=== PATIENT | female | born 1965 | race Two or more races ===

== ENCOUNTER 2019-08-11 15:12 | Inpatient (IN) | payer MEDICAID ==
[~2019-08-11] VITALS: Ht 160 cm; Wt 51.5 kg
[2019-08-11 15:36] LABS: GLUCOSE,POINT OF CARE 298 MG/DL (70-110)
[2019-08-11 15:58] LABS: BASOPHILS % (AUTO) 0.6 % (0.0-2.0); EOSINOPHILS % (AUTO) 0.1 % (1.0-6.0); HEMATOCRIT 26.9 % (36-46); HEMOGLOBIN 8.7 g/dL (12.0-16.0); LYMPHOCYTES # (AUTO) 1.2 K/uL (1.0-4.8); LYMPHOCYTES % (AUTO) 5.2 % (22.0-44.0); MEAN CORPUSCULAR HGB CONC 32.3 G/dL (31.0-37.0); MEAN CORPUSCULAR VOLUME 81 fL (80-100); MONOCYTES # (AUTO) 1.5 K/uL (0.1-1.0); MONOCYTES % (AUTO) 6.2 % (2.0-9.0); NEUTROPHILS # (AUTO) 20.6 K/uL (1.8-7.7); PLATELET COUNT (AUTO) 585 K/uL (150-450); RED BLOOD CELL COUNT(AUTO) 3.34 MIL/uL (4.00-5.20); RED CELL DISTRIBUTION WIDTH 14.6 % (11.5-14.5)
[2019-08-11 16:03] LABS: NEUTROPHILS % (AUTO) 87.9 % (40.0-70.0)
[2019-08-11] MEDS ORDERED: SODIUM CHLORIDE 0.9% 1,000 ML IV ONE ×2 (16:15→16:45)
[2019-08-11 16:17] LABS: PROTHROMBIN TIME 10.4 SEC (9.4-11.6)
[2019-08-11 16:18] LABS: CALCIUM, TOTAL 8.7 mg/dL (8.8-10.5); CREATININE 1.05 mg/dL (0.60-1.30); POTASSIUM 4.6 mmol/L (3.5-5.1)
[2019-08-11 16:25] LABS: ALBUMIN 1.9 g/dL (3.4-5.0); BILIRUBIN,TOTAL 0.5 mg/dL (0.1-1.0); TOTAL PROTEIN, SERUM 7.3 g/dL (6.4-8.2)
[2019-08-11] MEDS ORDERED: TAZOBACTAM IV ONE (17:00)
[2019-08-11] MEDS ORDERED: WATER IV ONE (17:00)
[2019-08-11] MEDS ORDERED: DEXTROSE 5% IV ONE (17:00)
[2019-08-11] MEDS ORDERED: PIPERACILLIN SODIUM IV ONE (17:00)
[2019-08-11 17:06] LABS: ABG A-A DIFF O2 23.3 mmHg (10-20.0); ABG BASE EXCESS 2.3 mmol/L (-2.0-3.0); ABG HCO3 26.4 mmol/L (22.0-26.0); ABG METHEMOGLOBIN 0.3 % (0.0-1.5); ABG OXYGEN CONTENT 10.6 mL/dL (15.0-23.0); ABG OXYGEN SATURATION 95.8 % (95.0-98.0); ABG OXYHEMOGLOBIN 94.6 % (94.0-100.0); ABG PCO2 38 mmHg (35-45); ABG PH 7.459 (7.35-7.450); PO2, ARTERIAL BG 81.4 mmHg (84.0-92.0); SOURCE, BLOOD GAS ARTERIAL; TEMPERATURE, FAHRENHEIT, BG 98.1 FAHREN (96.0-98.6)
[2019-08-11 17:07] LABS: ABG TOTAL HEMOGLOBIN 7.9 G/dL (12.0-18.0); O2 DEVICE,BLOOD GAS ROOM AIR (ROOM AIR); SITE, BLOOD GAS LFT RADIAL
[2019-08-11] MEDS ORDERED: ACETAMINOPHEN 325 MG TABLET PO PRN (17:45)
[2019-08-11] MEDS ORDERED: ONDANSETRON HCL 4 MG/2 ML VIAL IVP PRN ×2 (17:45→21:45)
[2019-08-11] MEDS ORDERED: 0.9% SODIUM CHLORIDE 10 ML SYRINGE IVP PRN ×2 (17:45→21:45)
[2019-08-11] MEDS ORDERED: VANCOMYCIN HCL 1.25 GM in DEXTROSE 5%-WATER 250 ML IV ONE (18:00)
[2019-08-11] MEDS ORDERED: DEXTROSE 50%-WATER 25 GM/50 ML SYRINGE IVP PRN (21:45)
[2019-08-11] MEDS ORDERED: OxyCODONE HCL/ACETAMINOPHEN 5-325 MG TABLET PO PRN ×2 (21:45)
[2019-08-11 22:15] VITALS: BP 145/79
[2019-08-11] MEDS: DOCUSATE SODIUM 100 MG CAPSULE PO SCH (22:24)
[2019-08-11] MEDS: INSULIN LISPRO 100 UNITS/ML SQ PRN (22:24)
[2019-08-11] MEDS: HEPARIN SODIUM,PORCINE 5,000 UNITS/ML VIAL SQ SCH (22:25)
[2019-08-11] MEDS ORDERED: DEXTROSE 5% IV SCH (23:00)
[2019-08-11] MEDS ORDERED: WATER IV SCH (23:00)
[2019-08-11] MEDS ORDERED: PIPERACILLIN SODIUM IV SCH (23:00)
[2019-08-11] MEDS ORDERED: TAZOBACTAM IV SCH (23:00)
[2019-08-12] VITALS (7 sets, daily range): BP systolic 104–143; BP diastolic 52–84
[2019-08-12] MEDS ORDERED: SODIUM CHLORIDE 0.9% 250 ML IV ONE (00:08)
[2019-08-12] MEDS: PIPERACILLIN/TAZO 3.375 GM/D5W 50 ML IV SCH ×5 (00:44→23:02)
[2019-08-12] MEDS ORDERED: INFLUENZA VIRUS VACCINE QVS 2019-20 (3YR+)/PF 60 MCG/0.5 ML SYRINGE IM ONE (03:15)
[2019-08-12] MEDS ORDERED: VANCOMYCIN HCL 750 MG in DEXTROSE 5%-WATER 250 ML IV SCH (06:00)
[2019-08-12] MEDS: INSULIN LISPRO 100 UNITS/ML SQ PRN ×4 (06:02→21:06)
[2019-08-12 06:11] LABS: BASOPHILS % (AUTO) 0.5 % (0.0-2.0); EOSINOPHILS % (AUTO) 0.3 % (1.0-6.0); HEMATOCRIT 22.4 % (36-46); HEMOGLOBIN 7.3 g/dL (12.0-16.0); LYMPHOCYTES % (AUTO) 5.3 % (22.0-44.0); MEAN CORPUSCULAR HEMOGLOBIN 26.1 pg (26.0-34.0); MEAN CORPUSCULAR HGB CONC 32.6 G/dL (31.0-37.0); MEAN CORPUSCULAR VOLUME 80 fL (80-100); MONOCYTES # (AUTO) 1.5 K/uL (0.1-1.0); MONOCYTES % (AUTO) 7.4 % (2.0-9.0); PLATELET COUNT (AUTO) 470 K/uL (150-450); RED CELL DISTRIBUTION WIDTH 14.7 % (11.5-14.5)
[2019-08-12 06:17] LABS: NEUTROPHILS % (AUTO) 86.5 % (40.0-70.0)
[2019-08-12 06:20] LABS: HEMOGLOBIN A1C 10.7 % (4.5-6.2)
[2019-08-12 06:29] LABS: ANION GAP 6 mmol/L (8-16); CARBON DIOXIDE 27 mmol/L (22-29); CHLORIDE 103 mmol/L (98-107); CHOL/HDL RATIO 2.6 (3.9-5.7); CHOLESTEROL 130 mg/dL (131-200); CREATININE 0.82 mg/dL (0.60-1.30); GLOMERULAR FILTR. RATE CALC > 60 mL/min (>60); GLUCOSE,RANDOM 181 mg/dL (70-110); HDL CHOLESTEROL 50 mg/dL (40-60); LDL CHOL (CALC.) 65 mg/dL (0-130); POTASSIUM 4.5 mmol/L (3.5-5.1); SODIUM SERUM 136 mmol/L (136-145); TRIGLYCERIDES 76 mg/dL (15-150); UREA NITROGEN, BLOOD 20 mg/dL (7-18)
[2019-08-12] MEDS: VANCOMYCIN HCL 750 MG in DEXTROSE 5%-WATER 250 ML IV SCH ×2 (06:42→19:14)
[2019-08-12 07:26] LABS: GLUCOSE,POINT OF CARE 322 MG/DL (70-110)
[2019-08-12] MEDS: DOCUSATE SODIUM 100 MG CAPSULE PO SCH ×2 (07:59→21:03)
[2019-08-12] MEDS: HEPARIN SODIUM,PORCINE 5,000 UNITS/ML VIAL SQ SCH ×2 (07:59→21:04)
[2019-08-12] MEDS: FAMOTIDINE 10 MG/ML 2 ML VIAL IVP SCH (08:00)
[2019-08-12 12:11] LABS: GLUCOMETER DEV NAME(LOC) 6N.2; GLUCOSE,POINT OF CARE 180 MG/DL (70-110)
[2019-08-12 19:26] LABS: GLUCOMETER DEV NAME(LOC) 4E.2; GLUCOSE,POINT OF CARE 210 MG/DL (70-110)
[2019-08-12 19:26] LABS: GLUCOMETER DEV NAME(LOC) 4E.2; GLUCOSE,POINT OF CARE 279 MG/DL (70-110)
[2019-08-12 19:26] LABS: GLUCOMETER DEV NAME(LOC) 4E.2; GLUCOSE,POINT OF CARE 316 MG/DL (70-110)
[2019-08-12] MEDS: ACETAMINOPHEN 325 MG TABLET PO PRN (21:03)
[2019-08-13 04:39] VITALS: BP 141/80
[2019-08-13] MEDS: PIPERACILLIN/TAZO 3.375 GM/D5W 50 ML IV SCH ×3 (05:31→16:19)
[2019-08-13] MEDS: VANCOMYCIN HCL 750 MG in DEXTROSE 5%-WATER 250 ML IV SCH ×2 (06:18→18:52)
[2019-08-13] MEDS: INSULIN LISPRO 100 UNITS/ML SQ PRN ×4 (06:24→21:58)
[2019-08-13 06:39] LABS: BASOPHILS % (AUTO) 0.4 % (0.0-2.0); EOSINOPHILS % (AUTO) 0.9 % (1.0-6.0); HEMATOCRIT 24.9 % (36-46); HEMOGLOBIN 8.1 g/dL (12.0-16.0); LYMPHOCYTES # (AUTO) 0.9 K/uL (1.0-4.8); LYMPHOCYTES % (AUTO) 4.3 % (22.0-44.0); MEAN CORPUSCULAR HGB CONC 32.3 G/dL (31.0-37.0); MEAN CORPUSCULAR VOLUME 81 fL (80-100); MONOCYTES # (AUTO) 1.6 K/uL (0.1-1.0); MONOCYTES % (AUTO) 7.2 % (2.0-9.0); PLATELET COUNT (AUTO) 496 K/uL (150-450); RED CELL DISTRIBUTION WIDTH 14.7 % (11.5-14.5)
[2019-08-13 06:46] LABS: GLUCOMETER DEV NAME(LOC) 6N.2; GLUCOSE,POINT OF CARE 252 MG/DL (70-110)
[2019-08-13 06:52] LABS: NEUTROPHILS % (AUTO) 87.2 % (40.0-70.0)
[2019-08-13 06:57] LABS: CALCIUM, TOTAL 8.1 mg/dL (8.8-10.5); CREATININE 1.09 mg/dL (0.60-1.30); POTASSIUM 4.5 mmol/L (3.5-5.1)
[2019-08-13 08:19] VITALS: BP 136/73
[2019-08-13] MEDS: DOCUSATE SODIUM 100 MG CAPSULE PO SCH ×2 (08:21→21:00)
[2019-08-13] MEDS: HEPARIN SODIUM,PORCINE 5,000 UNITS/ML VIAL SQ SCH ×2 (08:23→21:00)
[2019-08-13] MEDS: FAMOTIDINE 10 MG/ML 2 ML VIAL IVP SCH (08:24)
[2019-08-13 11:32] LABS: GLUCOMETER DEV NAME(LOC) 4E.2; GLUCOSE,POINT OF CARE 321 MG/DL (70-110)
[2019-08-13 15:20] VITALS: BP 121/68
[2019-08-13] MEDS: MetFORMIN HCL 850 MG TABLET PO SCH (16:55)
[2019-08-13 19:46] LABS: GLUCOMETER DEV NAME(LOC) 6N.2; GLUCOSE,POINT OF CARE 355 MG/DL (70-110)
[2019-08-13 19:46] LABS: GLUCOMETER DEV NAME(LOC) 6N.2; GLUCOSE,POINT OF CARE 309 MG/DL (70-110)
[2019-08-13 19:55] VITALS: BP 113/61
[2019-08-13 23:41] LABS: GLUCOMETER DEV NAME(LOC) 6N.2; GLUCOSE,POINT OF CARE 352 MG/DL (70-110)
[2019-08-14] VITALS: BP 131/75
[2019-08-14] MEDS: PIPERACILLIN/TAZO 3.375 GM/D5W 50 ML IV SCH ×5 (00:45→23:26)
[2019-08-14 04:50] VITALS: BP 127/77
[2019-08-14] MEDS ORDERED: LIDOCAINE/PF 1% 30 ML VIAL ONE (06:49)
[2019-08-14] MEDS ORDERED: BUPIVACAINE HCL/PF 0.5% 30 ML VIAL ONE (06:50)
[2019-08-14] MEDS ORDERED: SODIUM CL IRRIG SOLN BAG 3,000 ML IRRIG ONE (07:06)
[2019-08-14] MEDS ORDERED: BACITRACIN 50,000 UNITS/VIAL ONE (07:06)
[2019-08-14] MEDS ORDERED: SODIUM CHLORIDE 0.9% 1,000 ML IV ONE (07:08)
[2019-08-14 07:49] LABS: BASOPHILS % (AUTO) 0.5 % (0.0-2.0); EOSINOPHILS % (AUTO) 1.1 % (1.0-6.0); HEMOGLOBIN 7.8 g/dL (12.0-16.0); LYMPHOCYTES # (AUTO) 1.2 K/uL (1.0-4.8); LYMPHOCYTES % (AUTO) 6.2 % (22.0-44.0); MEAN CORPUSCULAR HEMOGLOBIN 25.9 pg (26.0-34.0); MEAN CORPUSCULAR HGB CONC 32.5 G/dL (31.0-37.0); MEAN CORPUSCULAR VOLUME 80 fL (80-100); MONOCYTES # (AUTO) 1.5 K/uL (0.1-1.0); MONOCYTES % (AUTO) 7.9 % (2.0-9.0); NEUTROPHILS % (AUTO) 84.3 % (40.0-70.0); PLATELET COUNT (AUTO) 477 K/uL (150-450); RED BLOOD CELL COUNT(AUTO) 3.01 MIL/uL (4.00-5.20); RED CELL DISTRIBUTION WIDTH 14.6 % (11.5-14.5)
[2019-08-14] MEDS ORDERED: HYDROmorphone 2 MG/ML SYRINGE IVP PRN (08:00)
[2019-08-14] MEDS: OXYGEN THERAPY IH SCH (08:00)
[2019-08-14] MEDS ORDERED: FentaNYL CITRATE-PF 100 MCG/2 ML VIAL IVP PRN (08:00)
[2019-08-14] MEDS ORDERED: VANCOMYCIN HCL 1 GM/VIAL ONE (08:00)
[2019-08-14] MEDS: MetFORMIN HCL 850 MG TABLET PO SCH ×2 (08:00→17:06)
[2019-08-14 08:03] LABS: CREATININE 1.01 mg/dL (0.60-1.30); VANCOMYCIN,RANDOM 14.9 mcg/mL (25.0-50.0)
[2019-08-14] MEDS: FAMOTIDINE 10 MG/ML 2 ML VIAL IVP SCH (09:00)
[2019-08-14] MEDS: DOCUSATE SODIUM 100 MG CAPSULE PO SCH ×2 (09:00→21:41)
[2019-08-14] MEDS: HEPARIN SODIUM,PORCINE 5,000 UNITS/ML VIAL SQ SCH ×2 (09:00→21:40)
[2019-08-14 09:45] VITALS: BP 125/75
[2019-08-14 11:36] VITALS: BP 130/74
[2019-08-14] MEDS: INSULIN LISPRO 100 UNITS/ML SQ PRN ×3 (11:36→21:42)
[2019-08-14] MEDS ORDERED: SODIUM CHLORIDE 0.9% 500 ML IV ONE (11:57)
[2019-08-14] MEDS: ACETAMINOPHEN 325 MG TABLET PO PRN (11:59)
[2019-08-14] MEDS ORDERED: LIDOCAINE/PF 2% 5 ML VIAL INJ ONE (12:00)
[2019-08-14] MEDS ORDERED: FentaNYL CITRATE-PF 250 MCG/5 ML VIAL IVP ONE (12:00)
[2019-08-14] MEDS ORDERED: MIDAZOLAM HCL 2 MG/2 ML VIAL IVP ONE (12:00)
[2019-08-14 12:01] LABS: GLUCOMETER DEV NAME(LOC) 6N.2; GLUCOSE,POINT OF CARE 218 MG/DL (70-110)
[2019-08-14] MEDS: VANCOMYCIN HCL 750 MG in DEXTROSE 5%-WATER 250 ML IV SCH ×2 (12:12→18:07)
[2019-08-14 15:10] VITALS: BP 119/65
[2019-08-14 18:01] LABS: GLUCOMETER DEV NAME(LOC) 4E.2; GLUCOSE,POINT OF CARE 208 MG/DL (70-110)
[2019-08-14 19:30] VITALS: BP 126/68
[2019-08-15] VITALS (7 sets, daily range): BP systolic 116–138; BP diastolic 66–87
[2019-08-15] MEDS: PIPERACILLIN/TAZO 3.375 GM/D5W 50 ML IV SCH ×3 (04:37→17:57)
[2019-08-15 05:39] LABS: BASOPHILS % (AUTO) 0.7 % (0.0-2.0); EOSINOPHILS % (AUTO) 2.6 % (1.0-6.0); HEMATOCRIT 21.4 % (36-46); LYMPHOCYTES # (AUTO) 1.6 K/uL (1.0-4.8); LYMPHOCYTES % (AUTO) 11.2 % (22.0-44.0); MEAN CORPUSCULAR HEMOGLOBIN 26.1 pg (26.0-34.0); MEAN CORPUSCULAR HGB CONC 32.8 G/dL (31.0-37.0); MEAN CORPUSCULAR VOLUME 80 fL (80-100); MONOCYTES # (AUTO) 1.1 K/uL (0.1-1.0); MONOCYTES % (AUTO) 7.7 % (2.0-9.0); NEUTROPHILS # (AUTO) 11.4 K/uL (1.8-7.7); NEUTROPHILS % (AUTO) 77.8 % (40.0-70.0); PLATELET COUNT (AUTO) 452 K/uL (150-450); RED BLOOD CELL COUNT(AUTO) 2.69 MIL/uL (4.00-5.20); RED CELL DISTRIBUTION WIDTH 14.7 % (11.5-14.5)
[2019-08-15 05:55] LABS: CALCIUM, TOTAL 7.9 mg/dL (8.8-10.5); CREATININE 1.03 mg/dL (0.60-1.30); POTASSIUM 4.4 mmol/L (3.5-5.1)
[2019-08-15] MEDS: INSULIN LISPRO 100 UNITS/ML SQ PRN ×4 (06:02→20:41)
[2019-08-15 06:37] LABS: GLUCOMETER DEV NAME(LOC) 4E.2; GLUCOSE,POINT OF CARE 187 MG/DL (70-110)
[2019-08-15] MEDS: VANCOMYCIN HCL 750 MG in DEXTROSE 5%-WATER 250 ML IV SCH ×2 (06:49→19:10)
[2019-08-15] MEDS: OXYGEN THERAPY IH SCH ×2 (08:00→20:00)
[2019-08-15] MEDS: FAMOTIDINE 10 MG/ML 2 ML VIAL IVP SCH (08:48)
[2019-08-15] MEDS: MetFORMIN HCL 850 MG TABLET PO SCH (08:48)
[2019-08-15] MEDS: HEPARIN SODIUM,PORCINE 5,000 UNITS/ML VIAL SQ SCH ×2 (08:48→20:07)
[2019-08-15] MEDS: DOCUSATE SODIUM 100 MG CAPSULE PO SCH ×2 (08:48→20:07)
[2019-08-15 11:41] LABS: GLUCOMETER DEV NAME(LOC) 6N.2; GLUCOSE,POINT OF CARE 319 MG/DL (70-110)
[2019-08-15 11:41] LABS: GLUCOMETER DEV NAME(LOC) 6N.2; GLUCOSE,POINT OF CARE 320 MG/DL (70-110)
[2019-08-15 12:22] LABS: GLUCOMETER DEV NAME(LOC) 6N.2; GLUCOSE,POINT OF CARE 242 MG/DL (70-110)
[2019-08-15] MEDS: SOD FERRIC GLUC COMPLX/SUCROSE 125 MG in SODIUM CHLORIDE 0.9% 100 ML IV SCH (14:53)
[2019-08-15 17:26] LABS: GLUCOMETER DEV NAME(LOC) 6N.2; GLUCOSE,POINT OF CARE 219 MG/DL (70-110)
[2019-08-15] MEDS: MetFORMIN HCL 500 MG TABLET PO SCH (18:07)
[2019-08-16] MEDS: PIPERACILLIN/TAZO 3.375 GM/D5W 50 ML IV SCH ×5 (00:05→23:28)
[2019-08-16 04:00] VITALS: BP 136/78
[2019-08-16] MEDS ORDERED: SODIUM CHLORIDE 0.9% 500 ML IV ONE (05:09)
[2019-08-16 05:24] LABS: BASOPHILS % (AUTO) 1.1 % (0.0-2.0); EOSINOPHILS % (AUTO) 3.9 % (1.0-6.0); HEMATOCRIT 22.4 % (36-46); HEMOGLOBIN 7.8 g/dL (12.0-16.0); LYMPHOCYTES # (AUTO) 1.3 K/uL (1.0-4.8); LYMPHOCYTES % (AUTO) 12.4 % (22.0-44.0); MEAN CORPUSCULAR HEMOGLOBIN 27.8 pg (26.0-34.0); MEAN CORPUSCULAR HGB CONC 34.9 G/dL (31.0-37.0); MEAN CORPUSCULAR VOLUME 80 fL (80-100); MONOCYTES % (AUTO) 9.1 % (2.0-9.0); NEUTROPHILS % (AUTO) 73.5 % (40.0-70.0); PLATELET COUNT (AUTO) 445 K/uL (150-450); RED BLOOD CELL COUNT(AUTO) 2.82 MIL/uL (4.00-5.20); RED CELL DISTRIBUTION WIDTH 14.8 % (11.5-14.5)
[2019-08-16 05:26] LABS: GLUCOMETER DEV NAME(LOC) 6N.2; GLUCOSE,POINT OF CARE 177 MG/DL (70-110)
[2019-08-16 05:34] LABS: CALCIUM, TOTAL 8.1 mg/dL (8.8-10.5); CREATININE 1.05 mg/dL (0.60-1.30); POTASSIUM 4.6 mmol/L (3.5-5.1)
[2019-08-16 05:36] LABS: GLUCOMETER DEV NAME(LOC) 4E.2; GLUCOSE,POINT OF CARE 232 MG/DL (70-110)
[2019-08-16] MEDS: INSULIN LISPRO 100 UNITS/ML SQ PRN ×4 (05:53→20:26)
[2019-08-16] MEDS: VANCOMYCIN HCL 750 MG in DEXTROSE 5%-WATER 250 ML IV SCH ×2 (06:41→19:13)
[2019-08-16 07:30] VITALS: BP 130/79
[2019-08-16] MEDS: OXYGEN THERAPY IH SCH (08:00)
[2019-08-16] MEDS: MetFORMIN HCL 500 MG TABLET PO SCH ×2 (09:02→17:02)
[2019-08-16] MEDS: HEPARIN SODIUM,PORCINE 5,000 UNITS/ML VIAL SQ SCH ×2 (09:02→20:26)
[2019-08-16] MEDS: DOCUSATE SODIUM 100 MG CAPSULE PO SCH ×2 (09:03→20:25)
[2019-08-16] MEDS: FAMOTIDINE 10 MG/ML 2 ML VIAL IVP SCH (09:03)
[2019-08-16 11:12] VITALS: BP 150/72
[2019-08-16] MEDS: SOD FERRIC GLUC COMPLX/SUCROSE 125 MG in SODIUM CHLORIDE 0.9% 100 ML IV SCH (13:51)
[2019-08-16 15:33] VITALS: BP 139/78
[2019-08-16 19:56] VITALS: BP 127/74
[2019-08-16 20:19] LABS: GLUCOMETER DEV NAME(LOC) 4E.2; GLUCOSE,POINT OF CARE 233 MG/DL (70-110)
[2019-08-16 20:19] LABS: GLUCOMETER DEV NAME(LOC) 4E.2; GLUCOSE,POINT OF CARE 218 MG/DL (70-110)
[2019-08-16 23:31] VITALS: BP 129/74
[2019-08-16 23:43] LABS: GLUCOMETER DEV NAME(LOC) 4E.2; GLUCOSE,POINT OF CARE 204 MG/DL (70-110)
[2019-08-17] MEDS ORDERED: SODIUM CHLORIDE 0.9% 500 ML IV ONE (05:00)
[2019-08-17 05:11] VITALS: BP 122/70
[2019-08-17] MEDS: PIPERACILLIN/TAZO 3.375 GM/D5W 50 ML IV SCH ×2 (05:11→11:33)
[2019-08-17 05:56] LABS: ANION GAP 1 mmol/L (8-16); CARBON DIOXIDE 31 mmol/L (22-29); CHLORIDE 101 mmol/L (98-107); CREATININE 0.91 mg/dL (0.60-1.30); GLOMERULAR FILTR. RATE CALC > 60 mL/min (>60); GLUCOSE,RANDOM 133 mg/dL (70-110); SODIUM SERUM 133 mmol/L (136-145); VANCOMYCIN,RANDOM 21.7 mcg/mL (25.0-50.0)
[2019-08-17 06:07] LABS: UREA NITROGEN, BLOOD 14 mg/dL (7-18)
[2019-08-17] MEDS: VANCOMYCIN HCL 750 MG in DEXTROSE 5%-WATER 250 ML IV SCH (06:35)
[2019-08-17 06:50] LABS: GLUCOMETER DEV NAME(LOC) 6N.2; GLUCOSE,POINT OF CARE 128 MG/DL (70-110)
[2019-08-17 07:25] VITALS: BP 135/83
[2019-08-17] MEDS: MetFORMIN HCL 500 MG TABLET PO SCH ×2 (08:14→17:03)
[2019-08-17] MEDS: HEPARIN SODIUM,PORCINE 5,000 UNITS/ML VIAL SQ SCH ×2 (08:14→21:11)
[2019-08-17] MEDS: FAMOTIDINE 10 MG/ML 2 ML VIAL IVP SCH (08:14)
[2019-08-17] MEDS: DOCUSATE SODIUM 100 MG CAPSULE PO SCH ×2 (08:16→21:00)
[2019-08-17 11:35] VITALS: BP 116/71
[2019-08-17] MEDS: INSULIN LISPRO 100 UNITS/ML SQ PRN ×3 (11:36→21:13)
[2019-08-17 15:12] LABS: GLUCOMETER DEV NAME(LOC) 6N.2; GLUCOSE,POINT OF CARE 187 MG/DL (70-110)
[2019-08-17 15:28] VITALS: BP 130/79
[2019-08-17] MEDS: SOD FERRIC GLUC COMPLX/SUCROSE 125 MG in SODIUM CHLORIDE 0.9% 100 ML IV SCH (16:00)
[2019-08-17] MEDS: CeFAZolin 2 GM/DEXTROSE 50 ML IV SCH (17:07)
[2019-08-17 19:26] VITALS: BP 132/76
[2019-08-17 21:48] LABS: GLUCOMETER DEV NAME(LOC) 6N.2; GLUCOSE,POINT OF CARE 197 MG/DL (70-110)
[2019-08-17 23:27] VITALS: BP 128/73
[2019-08-18] MEDS: CeFAZolin 2 GM/DEXTROSE 50 ML IV SCH ×3 (01:17→17:45)
[2019-08-18 04:53] VITALS: BP 131/76
[2019-08-18 06:31] LABS: CALCIUM, TOTAL 8.4 mg/dL (8.8-10.5); CREATININE 1.13 mg/dL (0.60-1.30); POTASSIUM 4.1 mmol/L (3.5-5.1)
[2019-08-18 07:25] VITALS: BP 142/78
[2019-08-18] MEDS: OXYGEN THERAPY IH SCH (08:00)
[2019-08-18] MEDS: HEPARIN SODIUM,PORCINE 5,000 UNITS/ML VIAL SQ SCH (08:54)
[2019-08-18] MEDS: MetFORMIN HCL 500 MG TABLET PO SCH ×2 (08:54→17:44)
[2019-08-18] MEDS: DOCUSATE SODIUM 100 MG CAPSULE PO SCH ×2 (08:54→21:00)
[2019-08-18] MEDS: FAMOTIDINE 10 MG/ML 2 ML VIAL IVP SCH (08:56)
[2019-08-18 11:16] LABS: GLUCOMETER DEV NAME(LOC) 4E.2; GLUCOSE,POINT OF CARE 167 MG/DL (70-110)
[2019-08-18 11:16] LABS: GLUCOMETER DEV NAME(LOC) 4E.2; GLUCOSE,POINT OF CARE 147 MG/DL (70-110)
[2019-08-18 11:18] VITALS: BP 137/75
[2019-08-18] MEDS: SOD FERRIC GLUC COMPLX/SUCROSE 125 MG in SODIUM CHLORIDE 0.9% 100 ML IV SCH (12:10)
[2019-08-18] MEDS: INSULIN LISPRO 100 UNITS/ML SQ PRN ×2 (12:13→17:45)
[2019-08-18 15:17] VITALS: BP 168/80
[2019-08-18 18:03] LABS: GLUCOMETER DEV NAME(LOC) 4E.2; GLUCOSE,POINT OF CARE 181 MG/DL (70-110)
[2019-08-18 20:16] VITALS: BP 144/83
[2019-08-18 20:24] LABS: GLUCOMETER DEV NAME(LOC) 6N.2; GLUCOSE,POINT OF CARE 232 MG/DL (70-110)
[2019-08-18 23:05] LABS: GLUCOMETER DEV NAME(LOC) 6N.2; GLUCOSE,POINT OF CARE 141 MG/DL (70-110)
[2019-08-18 23:59] VITALS: BP 137/83
[2019-08-19] MEDS: HEPARIN SODIUM,PORCINE 5,000 UNITS/ML VIAL SQ SCH ×2 (00:04→08:21)
[2019-08-19] MEDS: CeFAZolin 2 GM/DEXTROSE 50 ML IV SCH ×3 (03:01→16:56)
[2019-08-19 05:10] VITALS: BP 134/78
[2019-08-19 06:18] LABS: BASOPHILS % (AUTO) 1.1 % (0.0-2.0); EOSINOPHILS % (AUTO) 1.7 % (1.0-6.0); HEMATOCRIT 23.5 % (36-46); HEMOGLOBIN 8.2 g/dL (12.0-16.0); LYMPHOCYTES # (AUTO) 1.6 K/uL (1.0-4.8); MEAN CORPUSCULAR HEMOGLOBIN 27.9 pg (26.0-34.0); MEAN CORPUSCULAR HGB CONC 34.9 G/dL (31.0-37.0); MEAN CORPUSCULAR VOLUME 80 fL (80-100); MONOCYTES # (AUTO) 1.2 K/uL (0.1-1.0); MONOCYTES % (AUTO) 9.1 % (2.0-9.0); NEUTROPHILS # (AUTO) 9.8 K/uL (1.8-7.7); NEUTROPHILS % (AUTO) 76.1 % (40.0-70.0); PLATELET COUNT (AUTO) 572 K/uL (150-450); RED BLOOD CELL COUNT(AUTO) 2.95 MIL/uL (4.00-5.20); RED CELL DISTRIBUTION WIDTH 14.8 % (11.5-14.5)
[2019-08-19 06:24] LABS: GLUCOMETER DEV NAME(LOC) 6N.2; GLUCOSE,POINT OF CARE 138 MG/DL (70-110)
[2019-08-19 06:35] LABS: CALCIUM, TOTAL 8.2 mg/dL (8.8-10.5); CREATININE 1.06 mg/dL (0.60-1.30); POTASSIUM 4.2 mmol/L (3.5-5.1)
[2019-08-19] MEDS: OXYGEN THERAPY IH SCH (08:00)
[2019-08-19 08:06] VITALS: BP 139/83
[2019-08-19] MEDS: FAMOTIDINE 10 MG/ML 2 ML VIAL IVP SCH (08:21)
[2019-08-19] MEDS: DOCUSATE SODIUM 100 MG CAPSULE PO SCH (08:21)
[2019-08-19] MEDS: MetFORMIN HCL 500 MG TABLET PO SCH ×2 (08:22→17:25)
[2019-08-19] MEDS: INSULIN LISPRO 100 UNITS/ML SQ PRN (11:58)
[2019-08-19 12:11] VITALS: BP 140/81
[2019-08-19 12:36] LABS: GLUCOMETER DEV NAME(LOC) 4E.2; GLUCOSE,POINT OF CARE 195 MG/DL (70-110)
[2019-08-19] MEDS: SOD FERRIC GLUC COMPLX/SUCROSE 125 MG in SODIUM CHLORIDE 0.9% 100 ML IV SCH (13:52)
[2019-08-19 15:34] VITALS: BP 147/79
[2019-08-19] MEDS ORDERED: CEFA2IV IV (16:32)
[2019-08-19 18:19] LABS: GLUCOMETER DEV NAME(LOC) 4E.2; GLUCOSE,POINT OF CARE 112 MG/DL (70-110)
== END 2019-08-19 19:30 | disposition home health service (06) | DRG 720 ==
LOC: EMS 15:16 → 4E 19:47
PROVIDERS: ADMIT Internal Medicine; ATTEND Internal Medicine
PROC: 0Y9N0ZZ Drainage of Left Foot, Open Approach (ICD-10-PCS; principal; 2019-08-14 07:30)
DX: A41.9 Sepsis, unspecified organism (principal); E11.40 Type 2 diabetes mellitus with diabetic neuropathy, unspecified; E44.0 Moderate protein-calorie malnutrition; E11.65 Type 2 diabetes mellitus with hyperglycemia; L03.115 Cellulitis of right lower limb; D64.9 Anemia, unspecified; L02.612 Cutaneous abscess of left foot; B95.61 Methicillin susceptible Staphylococcus aureus infection as the cause of diseases classified elsewhere; L03.116 Cellulitis of left lower limb; S90.852A Superficial foreign body, left foot, initial encounter; W45.8XXA Other foreign body or object entering through skin, initial encounter; Z79.4 Long term (current) use of insulin; Z83.3 Family history of diabetes mellitus; Z91.14 Patient's other noncompliance with medication regimen; Y93.89 Activity, other specified; Y92.89 Other specified places as the place of occurrence of the external cause; Y99.8 Other external cause status
CPT/HCPCS: 36600; 73700; 82805; 83036; 83605; 87040; 87070; 87205; 90686; 97161; G0378; J0690; J1644; J2250; J2543; J2916; J3010; J3370; J3490; J7030; J7040; J7050; J7060

== ENCOUNTER 2019-09-02 10:22 | Inpatient (IN) | payer MEDICAID ==
[~2019-09-02] VITALS: Ht 160 cm; Wt 54.0 kg
[~2019-09-02 10:22] MED LIST: CEFA2IV IV
[2019-09-02] MEDS ORDERED: METF-960 PO (11:10)
[2019-09-02] MEDS ORDERED: SODIUM CHLORIDE 0.9% 2,000 ML IV ONE (11:30)
[2019-09-02] MEDS ORDERED: VANCOMYCIN HCL 1 GM/D5% WATER 200 ML IV ONE (11:30)
[2019-09-02 11:57] LABS: BASOPHILS % (AUTO) 1.7 % (0.0-2.0); EOSINOPHILS % (AUTO) 1.1 % (1.0-6.0); HEMOGLOBIN 10.4 g/dL (12.0-16.0); LYMPHOCYTES # (AUTO) 1.2 K/uL (1.0-4.8); MEAN CORPUSCULAR HGB CONC 32.4 G/dL (31.0-37.0); MEAN CORPUSCULAR VOLUME 84 fL (80-100); MONOCYTES # (AUTO) 0.9 K/uL (0.1-1.0); MONOCYTES % (AUTO) 9.4 % (2.0-9.0); NEUTROPHILS # (AUTO) 6.9 K/uL (1.8-7.7); NEUTROPHILS % (AUTO) 74.8 % (40.0-70.0); PLATELET COUNT (AUTO) 419 K/uL (150-450); RED BLOOD CELL COUNT(AUTO) 3.83 MIL/uL (4.00-5.20); RED CELL DISTRIBUTION WIDTH 19.7 % (11.5-14.5)
[2019-09-02 12:07] LABS: ANION GAP 5 mmol/L (8-16); CALCIUM, TOTAL 8.7 mg/dL (8.8-10.5); CARBON DIOXIDE 29 mmol/L (22-29); CHLORIDE 99 mmol/L (98-107); GLOMERULAR FILTR. RATE CALC > 60 mL/min (>60); GLUCOSE,RANDOM 335 mg/dL (70-110); POTASSIUM 4.7 mmol/L (3.5-5.1); SODIUM SERUM 133 mmol/L (136-145)
[2019-09-02 12:13] LABS: ALANINE AMINOTRANSFERASE 11 U/L (12-78); ALBUMIN 1.9 g/dL (3.4-5.0); ALKALINE PHOSPHATASE 217 U/L (46-116); ASPARTATE AMINOTRANSFERASE 20 U/L (15-37); BILIRUBIN,TOTAL 0.3 mg/dL (0.1-1.0); LIPASE 216 U/L (73-393); TOTAL PROTEIN, SERUM 7.4 g/dL (6.4-8.2)
[2019-09-02 12:19] LABS: APPEARANCE,URINE CLEAR (CLEAR); BILIRUBIN,URINE NEGATIVE (NEGATIVE); GLUCOSE, URINE (UA) >=1000 mg/dL (NEGATIVE); KETONES,URINE NEGATIVE (NEGATIVE); LEUKOCYTE ESTERASE ,URINE NEGATIVE (NEGATIVE); NITRATE,URINE NEGATIVE (NEGATIVE); OCCULT BLOOD,URINE MODERATE (NEGATIVE); PH,URINE 6.5 (5.0-8.0); PROTEIN,URINE SEE CONFIRM (NEGATIVE); UROBILINOGEN,URINE 0.2 mg/dL (<=1.0)
[2019-09-02 12:22] LABS: B-TYPE NATRIURETIC PEPTIDE 403 pg/mL (0-100)
[2019-09-02 12:25] LABS: BACTERIA,URINE None Seen /HPF (None Seen); SQUAMOUS EPITHELIAL CELL,UR Many /LPF (None Seen); SULFOSALICYLIC ACID,URINE 3+ (Negative); WBC,URINE 0-2 /HPF (0-5)
[2019-09-02 12:26] LABS: LACTIC ACID 0.9 mmol/L (0.4-2.0)
[2019-09-02 12:29] LABS: UREA NITROGEN, BLOOD 26 mg/dL (7-18)
[2019-09-02 12:39] LABS: GLUCOSE,POINT OF CARE 330 MG/DL (70-110)
[2019-09-02] MEDS ORDERED: PIPERACILLIN/TAZO 3.375 GM/D5W 50 ML IV ONE (13:00)
[2019-09-02 13:20] LABS: INFLUENZA TYPE A NEGATIVE FOR TYPE A (NEGATIVE); INFLUENZA TYPE B NEGATIVE FOR TYPE B (NEGATIVE)
[2019-09-02 13:33] LABS: C-REACTIVE PROTEIN QUANT 8.33 mg/dL (0.00-0.30)
[2019-09-02] MEDS ORDERED: ACETAMINOPHEN 325 MG TABLET PO PRN ×2 (13:45→19:15)
[2019-09-02] MEDS ORDERED: ONDANSETRON HCL 4 MG/2 ML VIAL IVP PRN ×2 (13:45→19:15)
[2019-09-02] MEDS ORDERED: 0.9% SODIUM CHLORIDE 10 ML SYRINGE IVP PRN (13:45)
[2019-09-02 15:19] LABS: GLUCOSE,POINT OF CARE 297 MG/DL (70-110)
[2019-09-02] MEDS ORDERED: AZITHROMYCIN 250 MG TABLET PO ONE (16:30)
[2019-09-02 18:15] VITALS: BP 157/82
[2019-09-02] MEDS ORDERED: DEXTROSE 50%-WATER 25 GM/50 ML SYRINGE IVP PRN (18:15)
[2019-09-02] MEDS ORDERED: MAGNESIUM HYDROXIDE SUSPENSION 30 ML UDCUP PO PRN (19:15)
[2019-09-02] MEDS ORDERED: MORPHINE SULFATE 2 MG/ML SYRINGE IVP PRN (19:15)
[2019-09-02] MEDS ORDERED: HYDROCODONE/ACETAMINOPHEN 5-325 MG TABLET PO PRN (19:15)
[2019-09-02] MEDS ORDERED: SODIUM CHLORIDE 0.9% 1,000 ML IV ONE (19:15)
[2019-09-02] MEDS ORDERED: BISACODYL 10 MG RECTAL RECTAL SUPPOSITORY PR PRN (19:15)
[2019-09-02] MEDS ORDERED: ZOLPIDEM TARTRATE 5 MG TABLET PO PRN (19:15)
[2019-09-02 20:00] VITALS: BP 150/90
[2019-09-02] MEDS ORDERED: SODIUM CHLORIDE 0.9% 250 ML IV ONE (21:12)
[2019-09-02] MEDS: INSULIN LISPRO 100 UNITS/ML SQ PRN (21:17)
[2019-09-02] MEDS: DOCUSATE SODIUM 100 MG CAPSULE PO SCH (21:49)
[2019-09-02] MEDS: PIPERACILLIN/TAZO 3.375 GM/D5W 50 ML IV SCH (21:49)
[2019-09-02] MEDS: VANCOMYCIN HCL 750 MG in DEXTROSE 5%-WATER 250 ML IV SCH (22:04)
[2019-09-02] MEDS: HEPARIN SODIUM,PORCINE 5,000 UNITS/ML VIAL SQ SCH (23:31)
[2019-09-03] VITALS (7 sets, daily range): BP systolic 122–157; BP diastolic 63–94
[2019-09-03] MEDS: PIPERACILLIN/TAZO 3.375 GM/D5W 50 ML IV SCH ×4 (03:50→22:02)
[2019-09-03] MEDS: INSULIN LISPRO 100 UNITS/ML SQ PRN ×4 (06:40→20:56)
[2019-09-03 07:10] LABS: GLUCOMETER DEV NAME(LOC) 5N.1; GLUCOSE,POINT OF CARE 267 MG/DL (70-110)
[2019-09-03] MEDS: VANCOMYCIN HCL 750 MG in DEXTROSE 5%-WATER 250 ML IV SCH ×2 (07:35→20:26)
[2019-09-03 07:59] LABS: ANION GAP 7 mmol/L (8-16); CALCIUM, TOTAL 8.1 mg/dL (8.8-10.5); CARBON DIOXIDE 28 mmol/L (22-29); CHLORIDE 103 mmol/L (98-107); CREATININE 0.95 mg/dL (0.60-1.30); GLOMERULAR FILTR. RATE CALC > 60 mL/min (>60); GLUCOSE,RANDOM 143 mg/dL (70-110); POTASSIUM 4.5 mmol/L (3.5-5.1); SODIUM SERUM 138 mmol/L (136-145); UREA NITROGEN, BLOOD 20 mg/dL (7-18)
[2019-09-03] MEDS: PANTOPRAZOLE SODIUM 40 MG DR TABLET PO SCH (08:00)
[2019-09-03] MEDS: DOCUSATE SODIUM 100 MG CAPSULE PO SCH ×2 (08:00→20:25)
[2019-09-03] MEDS: HEPARIN SODIUM,PORCINE 5,000 UNITS/ML VIAL SQ SCH ×3 (08:00→23:32)
[2019-09-03] MEDS: AZITHROMYCIN 250 MG TABLET PO SCH (08:01)
[2019-09-03 10:41] LABS: GLUCOMETER DEV NAME(LOC) 5N.2; GLUCOSE,POINT OF CARE 267 MG/DL (70-110)
[2019-09-03 10:41] LABS: GLUCOMETER DEV NAME(LOC) 5N.2; GLUCOSE,POINT OF CARE 128 MG/DL (70-110)
[2019-09-03 15:02] LABS: GLUCOMETER DEV NAME(LOC) 5N.1; GLUCOSE,POINT OF CARE 192 MG/DL (70-110)
[2019-09-03 18:03] LABS: GLUCOMETER DEV NAME(LOC) 5N.1; GLUCOSE,POINT OF CARE 213 MG/DL (70-110)
[2019-09-03 21:03] LABS: GLUCOMETER DEV NAME(LOC) 5N.1; GLUCOSE,POINT OF CARE 256 MG/DL (70-110)
[2019-09-04 04:55] VITALS: BP 151/93
[2019-09-04] MEDS: PIPERACILLIN/TAZO 3.375 GM/D5W 50 ML IV SCH ×4 (04:58→22:14)
[2019-09-04] MEDS: INSULIN LISPRO 100 UNITS/ML SQ PRN ×3 (06:28→17:38)
[2019-09-04 07:25] VITALS: BP 146/77
[2019-09-04 08:14] LABS: CALCIUM, TOTAL 8.2 mg/dL (8.8-10.5); CREATININE 1.03 mg/dL (0.60-1.30); POTASSIUM 4.3 mmol/L (3.5-5.1)
[2019-09-04] MEDS: VANCOMYCIN HCL 750 MG in DEXTROSE 5%-WATER 250 ML IV SCH ×2 (08:25→20:38)
[2019-09-04] MEDS: ASCORBIC ACID 500 MG TABLET PO SCH (08:26)
[2019-09-04] MEDS: ZINC SULFATE 220 MG CAPSULE PO SCH (08:26)
[2019-09-04] MEDS: PANTOPRAZOLE SODIUM 40 MG DR TABLET PO SCH (08:26)
[2019-09-04] MEDS: MULTIVITAMINS WITH MINERALS, THERAPEUTIC TABLET PO SCH (08:26)
[2019-09-04] MEDS: AZITHROMYCIN 250 MG TABLET PO SCH (08:26)
[2019-09-04] MEDS: HEPARIN SODIUM,PORCINE 5,000 UNITS/ML VIAL SQ SCH ×2 (08:26→16:29)
[2019-09-04] MEDS: DOCUSATE SODIUM 100 MG CAPSULE PO SCH ×2 (08:26→20:38)
[2019-09-04 11:28] VITALS: BP 158/83
[2019-09-04 15:47] VITALS: BP 142/66
[2019-09-04 16:42] LABS: GLUCOMETER DEV NAME(LOC) 5N.1; GLUCOSE,POINT OF CARE 329 MG/DL (70-110)
[2019-09-04 16:42] LABS: GLUCOMETER DEV NAME(LOC) 5N.1; GLUCOSE,POINT OF CARE 153 MG/DL (70-110)
[2019-09-04 19:13] VITALS: BP 146/82
[2019-09-04 21:05] LABS: GLUCOMETER DEV NAME(LOC) 5N.2; GLUCOSE,POINT OF CARE 201 MG/DL (70-110)
[2019-09-04 23:31] VITALS: BP 137/79
[2019-09-05] MEDS: HEPARIN SODIUM,PORCINE 5,000 UNITS/ML VIAL SQ SCH ×3 (00:19→17:01)
[2019-09-05] MEDS: INSULIN LISPRO 100 UNITS/ML SQ PRN ×4 (00:36→20:52)
[2019-09-05 04:36] VITALS: BP 144/79
[2019-09-05] MEDS: PIPERACILLIN/TAZO 3.375 GM/D5W 50 ML IV SCH ×4 (04:38→22:25)
[2019-09-05 06:45] LABS: CALCIUM, TOTAL 8.3 mg/dL (8.8-10.5); CREATININE 1.11 mg/dL (0.60-1.30); POTASSIUM 4.3 mmol/L (3.5-5.1); VANCOMYCIN,RANDOM 21.6 mcg/mL (25.0-50.0)
[2019-09-05 07:44] VITALS: BP 150/84
[2019-09-05 08:05] LABS: GLUCOMETER DEV NAME(LOC) 5N.1; GLUCOSE,POINT OF CARE 136 MG/DL (70-110)
[2019-09-05 08:05] LABS: GLUCOMETER DEV NAME(LOC) 5N.1; GLUCOSE,POINT OF CARE 269 MG/DL (70-110)
[2019-09-05] MEDS: PANTOPRAZOLE SODIUM 40 MG DR TABLET PO SCH (08:42)
[2019-09-05] MEDS: MULTIVITAMINS WITH MINERALS, THERAPEUTIC TABLET PO SCH (08:42)
[2019-09-05] MEDS: DOCUSATE SODIUM 100 MG CAPSULE PO SCH ×2 (08:42→20:07)
[2019-09-05] MEDS: ZINC SULFATE 220 MG CAPSULE PO SCH (08:42)
[2019-09-05] MEDS: ASCORBIC ACID 500 MG TABLET PO SCH (08:42)
[2019-09-05] MEDS: AZITHROMYCIN 250 MG TABLET PO SCH (08:42)
[2019-09-05] MEDS: VANCOMYCIN HCL 750 MG in DEXTROSE 5%-WATER 250 ML IV SCH ×2 (08:42→20:07)
[2019-09-05 11:00] VITALS: BP 148/82
[2019-09-05] MEDS ORDERED: IOVERSOL 320 MG/ML 100 ML VIAL ONE (12:59)
[2019-09-05 14:10] LABS: GLUCOMETER DEV NAME(LOC) 5N.1; GLUCOSE,POINT OF CARE 213 MG/DL (70-110)
[2019-09-05 15:26] VITALS: BP 158/92
[2019-09-05 19:40] VITALS: BP 142/85
[2019-09-05 21:30] LABS: GLUCOMETER DEV NAME(LOC) 5N.1; GLUCOSE,POINT OF CARE 238 MG/DL (70-110)
[2019-09-05 21:30] LABS: GLUCOMETER DEV NAME(LOC) 5N.1; GLUCOSE,POINT OF CARE 247 MG/DL (70-110)
[2019-09-05 23:48] VITALS: BP 128/71
[2019-09-06] MEDS: HEPARIN SODIUM,PORCINE 5,000 UNITS/ML VIAL SQ SCH ×3 (01:11→16:00)
[2019-09-06] MEDS ORDERED: SODIUM CHLORIDE 0.9% 250 ML IV ONE ×2 (01:17→23:26)
[2019-09-06] MEDS: PIPERACILLIN/TAZO 3.375 GM/D5W 50 ML IV SCH ×2 (04:21→10:48)
[2019-09-06 04:48] VITALS: BP 150/82
[2019-09-06 06:01] LABS: BASOPHILS % (AUTO) 3.1 % (0.0-2.0); EOSINOPHILS % (AUTO) 6.5 % (1.0-6.0); HEMATOCRIT 28.8 % (36-46); HEMOGLOBIN 9.7 g/dL (12.0-16.0); LYMPHOCYTES # (AUTO) 1.5 K/uL (1.0-4.8); LYMPHOCYTES % (AUTO) 22.3 % (22.0-44.0); MEAN CORPUSCULAR HEMOGLOBIN 27.8 pg (26.0-34.0); MEAN CORPUSCULAR HGB CONC 33.6 G/dL (31.0-37.0); MEAN CORPUSCULAR VOLUME 83 fL (80-100); MONOCYTES # (AUTO) 0.9 K/uL (0.1-1.0); MONOCYTES % (AUTO) 12.9 % (2.0-9.0); NEUTROPHILS # (AUTO) 3.8 K/uL (1.8-7.7); NEUTROPHILS % (AUTO) 55.2 % (40.0-70.0); PLATELET COUNT (AUTO) 398 K/uL (150-450); RED BLOOD CELL COUNT(AUTO) 3.48 MIL/uL (4.00-5.20); RED CELL DISTRIBUTION WIDTH 19.7 % (11.5-14.5)
[2019-09-06 06:16] LABS: CALCIUM, TOTAL 8.2 mg/dL (8.8-10.5); CREATININE 1.12 mg/dL (0.60-1.30); POTASSIUM 4.4 mmol/L (3.5-5.1)
[2019-09-06] MEDS: INSULIN LISPRO 100 UNITS/ML SQ PRN ×4 (06:19→21:19)
[2019-09-06 08:01] VITALS: BP 142/82
[2019-09-06] MEDS: PANTOPRAZOLE SODIUM 40 MG DR TABLET PO SCH (08:09)
[2019-09-06] MEDS: VANCOMYCIN HCL 750 MG in DEXTROSE 5%-WATER 250 ML IV SCH (08:09)
[2019-09-06] MEDS: ASCORBIC ACID 500 MG TABLET PO SCH (08:10)
[2019-09-06] MEDS: ZINC SULFATE 220 MG CAPSULE PO SCH (08:10)
[2019-09-06] MEDS: DOCUSATE SODIUM 100 MG CAPSULE PO SCH ×2 (08:10→21:17)
[2019-09-06] MEDS: MULTIVITAMINS WITH MINERALS, THERAPEUTIC TABLET PO SCH (08:10)
[2019-09-06] MEDS: AZITHROMYCIN 250 MG TABLET PO SCH (08:10)
[2019-09-06 11:55] VITALS: BP 135/83
[2019-09-06 16:08] VITALS: BP 140/82
[2019-09-06] MEDS: LEVOFLOXACIN 250 MG TABLET PO SCH (16:51)
[2019-09-06 19:45] VITALS: BP 151/83
[2019-09-06 23:35] VITALS: BP 146/64
[2019-09-07 03:48] LABS: GLUCOMETER DEV NAME(LOC) 5N.1; GLUCOSE,POINT OF CARE 178 MG/DL (70-110)
[2019-09-07 03:48] LABS: GLUCOMETER DEV NAME(LOC) 5N.1; GLUCOSE,POINT OF CARE 259 MG/DL (70-110)
[2019-09-07 04:45] VITALS: BP 148/90
[2019-09-07] MEDS: INSULIN LISPRO 100 UNITS/ML SQ PRN ×4 (06:14→21:22)
[2019-09-07 06:50] LABS: BASOPHILS % (AUTO) 3.1 % (0.0-2.0); EOSINOPHILS % (AUTO) 5.4 % (1.0-6.0); HEMATOCRIT 30.3 % (36-46); LYMPHOCYTES # (AUTO) 1.3 K/uL (1.0-4.8); LYMPHOCYTES % (AUTO) 18.4 % (22.0-44.0); MEAN CORPUSCULAR HEMOGLOBIN 27.3 pg (26.0-34.0); MEAN CORPUSCULAR HGB CONC 33.1 G/dL (31.0-37.0); MEAN CORPUSCULAR VOLUME 83 fL (80-100); MONOCYTES # (AUTO) 0.7 K/uL (0.1-1.0); MONOCYTES % (AUTO) 10.2 % (2.0-9.0); NEUTROPHILS # (AUTO) 4.5 K/uL (1.8-7.7); NEUTROPHILS % (AUTO) 62.9 % (40.0-70.0); PLATELET COUNT (AUTO) 428 K/uL (150-450); RED BLOOD CELL COUNT(AUTO) 3.67 MIL/uL (4.00-5.20); RED CELL DISTRIBUTION WIDTH 19.6 % (11.5-14.5)
[2019-09-07 07:04] LABS: CALCIUM, TOTAL 8.2 mg/dL (8.8-10.5); CREATININE 1.04 mg/dL (0.60-1.30); POTASSIUM 4.4 mmol/L (3.5-5.1)
[2019-09-07 07:23] VITALS: BP 145/87
[2019-09-07] MEDS: LEVOFLOXACIN 250 MG TABLET PO SCH (09:29)
[2019-09-07] MEDS: ASCORBIC ACID 500 MG TABLET PO SCH (09:29)
[2019-09-07] MEDS: DOCUSATE SODIUM 100 MG CAPSULE PO SCH ×2 (09:30→21:17)
[2019-09-07] MEDS: PANTOPRAZOLE SODIUM 40 MG DR TABLET PO SCH (09:31)
[2019-09-07] MEDS: MULTIVITAMINS WITH MINERALS, THERAPEUTIC TABLET PO SCH (09:31)
[2019-09-07] MEDS: ZINC SULFATE 220 MG CAPSULE PO SCH (09:31)
[2019-09-07] MEDS: HEPARIN SODIUM,PORCINE 5,000 UNITS/ML VIAL SQ SCH ×4 (09:32→21:17)
[2019-09-07 11:50] VITALS: BP 128/86
[2019-09-07 12:18] LABS: GLUCOMETER DEV NAME(LOC) 5N.1; GLUCOSE,POINT OF CARE 146 MG/DL (70-110)
[2019-09-07 12:26] LABS: GLUCOMETER DEV NAME(LOC) 5S.2A; GLUCOSE,POINT OF CARE 197 MG/DL (70-110)
[2019-09-07 13:07] LABS: LEGIONELLA PNEUMO AG URINE Negative (Negative); ORGANISM ID Not indicated.; S PNEUMO SOURCE Urine; STREP PNEUMONIAE AG URINE Negative (Negative); STREP.PNEUMO BODY FLUID CULT. Not Indicated
[2019-09-07 14:44] LABS: GLUCOMETER DEV NAME(LOC) 5N.1; GLUCOSE,POINT OF CARE 198 MG/DL (70-110)
[2019-09-07 15:21] VITALS: BP 144/87
[2019-09-07 19:10] VITALS: BP 155/90
[2019-09-07 23:48] VITALS: BP 150/90
[2019-09-08 04:15] VITALS: BP 146/87
[2019-09-08] MEDS ORDERED: SODIUM CHLORIDE 0.9% 250 ML IV ONE (04:26)
[2019-09-08] MEDS: INSULIN LISPRO 100 UNITS/ML SQ PRN ×2 (05:49→12:19)
[2019-09-08 07:06] LABS: BASOPHILS % (AUTO) 2.4 % (0.0-2.0); EOSINOPHILS % (AUTO) 5.2 % (1.0-6.0); HEMATOCRIT 31.5 % (36-46); HEMOGLOBIN 10.2 g/dL (12.0-16.0); LYMPHOCYTES # (AUTO) 1.5 K/uL (1.0-4.8); LYMPHOCYTES % (AUTO) 21.3 % (22.0-44.0); MEAN CORPUSCULAR HEMOGLOBIN 26.8 pg (26.0-34.0); MEAN CORPUSCULAR HGB CONC 32.5 G/dL (31.0-37.0); MEAN CORPUSCULAR VOLUME 83 fL (80-100); MONOCYTES # (AUTO) 0.7 K/uL (0.1-1.0); MONOCYTES % (AUTO) 10.8 % (2.0-9.0); NEUTROPHILS # (AUTO) 4.1 K/uL (1.8-7.7); NEUTROPHILS % (AUTO) 60.3 % (40.0-70.0); PLATELET COUNT (AUTO) 424 K/uL (150-450); RED BLOOD CELL COUNT(AUTO) 3.82 MIL/uL (4.00-5.20); RED CELL DISTRIBUTION WIDTH 19.7 % (11.5-14.5)
[2019-09-08 07:23] LABS: CALCIUM, TOTAL 8.3 mg/dL (8.8-10.5); CREATININE 1.01 mg/dL (0.60-1.30); POTASSIUM 4.2 mmol/L (3.5-5.1)
[2019-09-08 07:25] VITALS: BP 133/85
[2019-09-08] MEDS: MULTIVITAMINS WITH MINERALS, THERAPEUTIC TABLET PO SCH (09:02)
[2019-09-08] MEDS: PANTOPRAZOLE SODIUM 40 MG DR TABLET PO SCH (09:02)
[2019-09-08] MEDS: DOCUSATE SODIUM 100 MG CAPSULE PO SCH (09:02)
[2019-09-08] MEDS: ASCORBIC ACID 500 MG TABLET PO SCH (09:02)
[2019-09-08] MEDS: ZINC SULFATE 220 MG CAPSULE PO SCH (09:03)
[2019-09-08] MEDS: HEPARIN SODIUM,PORCINE 5,000 UNITS/ML VIAL SQ SCH (09:03)
[2019-09-08] MEDS: LEVOFLOXACIN 250 MG TABLET PO SCH (09:03)
[2019-09-08 11:27] LABS: GLUCOMETER DEV NAME(LOC) 5N.1; GLUCOSE,POINT OF CARE 245 MG/DL (70-110)
[2019-09-08 11:27] LABS: GLUCOMETER DEV NAME(LOC) 5N.1; GLUCOSE,POINT OF CARE 200 MG/DL (70-110)
[2019-09-08 11:28] LABS: GLUCOMETER DEV NAME(LOC) 5N.1; GLUCOSE,POINT OF CARE 196 MG/DL (70-110)
[2019-09-08 11:28] LABS: GLUCOMETER DEV NAME(LOC) 5N.1; GLUCOSE,POINT OF CARE 141 MG/DL (70-110)
[2019-09-08] MEDS ORDERED: LEVO250 PO (12:35)
== END 2019-09-08 15:15 | disposition home or self-care (01) | DRG 720 ==
LOC: EMS 10:22 → 5S 16:27
PROVIDERS: ADMIT Internal Medicine; ATTEND Internal Medicine
DX: A41.9 Sepsis, unspecified organism (principal); E43 Unspecified severe protein-calorie malnutrition; J18.9 Pneumonia, unspecified organism; L02.612 Cutaneous abscess of left foot; D64.9 Anemia, unspecified; E11.621 Type 2 diabetes mellitus with foot ulcer; L97.529 Non-pressure chronic ulcer of other part of left foot with unspecified severity; E11.65 Type 2 diabetes mellitus with hyperglycemia; Z91.19 Patient's noncompliance with other medical treatment and regimen; Z68.21 Body mass index [BMI] 21.0-21.9, adult
CPT/HCPCS: 71260; 83605; 83735; 84145; 86140; 86738; 87040; 87070; 87081; 87205; 87449; 87804; 87899; 93005; 93306; 93925; 96365; 99291; J1644; J2543; J3370; J7030; J7050; J7060